=== PATIENT | female | born 1960 | race Caucasian/White ===

== ENCOUNTER → 2017-09-25 | Outpatient (CLI) | payer BC ==
[~2017-09-25] MED LIST: ASPI-630 PO; METF500T4 PO; UNKNOWN DIABETIC MED
--- NOTE | 2017-09-25 16:35 | RAD ---
Three-view study of the lumbar spine Clinical indications: Low back pain which radiates down the right hip for 6 months. Findings: No compression fracture or discitis or osteolytic process is seen. There is a grade 1 anterolisthesis of L4-5. Mild degenerative disc space narrowing and endplate spurring is seen in L3-4 and L4-5. There is moderate degenerative disc space narrowing and endplate spurring at L5-S1. The transverse processes are intact. IMPRESSION: Degenerative lumbar spondylosis. No acute compression fracture is seen.
== END | disposition home or self-care (01) ==
LOC: DXRAD 15:11
PROVIDERS: ATTEND Nurse Practitioner Family
DX: M47.896 Other spondylosis, lumbar region (principal)
CPT/HCPCS: 72100